=== PATIENT | female | born 1985 | race American Indian/Alaskan Native ===

== ENCOUNTER 2019-02-12 15:04 | Emergency (ER) | payer OTHER ==
[2019-02-12] MEDS ORDERED: BABY ASPIRIN PO ONE (16:01)
--- NOTE | 2019-02-12 16:07 | Emergency Department Report ---
ED Chest Pain HPI - General Chief Complaint: Headache Stated Complaint: CHEST PAIN Time Seen by Provider: 02/12/19 15:35 Source: patient, EMS Mode of arrival: Stretcher Limitations: No Limitations - History of Present Illness Initial Comments: Patient is 34 years old female with history of lupus and previous episode of myocarditis. Patient presented to the ER complaining of left-sided chest pain, tightness in nature with no radiation and associated with some shortness of breath. Patient stated that her pain is completely resolved now. Patient sta ishmael that she has been experiencing episodic palpitation for the last week. Patient denied any fever or chills. No cough, nausea or vomiting. Patient stated that she had mild headache but is resolved now. MD Complaint: chest pain -: This morning Onset: during rest Pain Location: left chest Pain Radiation: none Severity scale (0 -10): 5 Quality: tightness Consistency: intermittent, now resolved Improves With: nothing Worsens With: nothing - Related Data Allergies Allergy/AdvReac Type Severity Reaction Status Date / Time No Known Allergies Allergy Unverified 02/12/19 15:10 Heart Score - HEART Score History: Slightly suspicious EKG: Normal Age: < 45 Risk factors: 1-2 risk factors Troponin: < normal limit HEART Score: 1 ED Review of Systems ROS: Stated complaint: CHEST PAIN Other details as noted in HPI Comment: All other systems reviewed and negative Constitutional: denies: chills, diaphoresis Respiratory: shortness of breath. denies: cough, orthopnea, wheezing Cardiovascular: chest pain, palpitations Gastrointestinal: denies: abdominal pain, nausea, vomiting, diarrhea, constipation, hematemesis, melena, hematochezia Musculoskeletal: denies: back pain Neurological: headache. denies: weakness, numbness, paresthesias, confusion, abnormal gait Psychiatric: denies: depression ED Past Medical Hx - Past Medical History Previous Medical History?: Yes Additional medical history: lupus, anemia - Surgical History Past Surgical History?: Yes Additional Surgical History: umbilical hernia - Social History Smoking Status: Never Smoker Substance Use Type: None ED Physical Exam - General Limitations: No Limitations General appearance: alert, in no apparent distress - Head Head exam: Present: atraumatic, normocephalic, normal inspection - Eye Eye exam: Present: normal appearance, PERRL - ENT ENT exam: Present: normal exam, normal orophraynx, mucous membranes moist - Neck Neck exam: Present: normal inspection, full ROM. Absent: tenderness, meningismus, lymphadenopathy, thyromegaly - Respiratory Respiratory exam: Present: normal lung sounds bilaterally - Cardiovascular Cardiovascular Exam: Present: tachycardia. Absent: systolic murmur, diastolic murmur, rubs, gallop - GI/Abdominal GI/Abdominal exam: Present: soft, normal bowel sounds. Absent: distended, tenderness, guarding, rebound, rigid, organomegaly, mass, bruit, pulsatile mass, hernia - Extremities Exam Extremities exam: Present: normal inspection, full ROM, normal capillary refill. Absent: tenderness, pedal edema, joint swelling, calf tenderness - Back Exam Back exam: Present: normal inspection, full ROM. Absent: CVA tenderness (R), CVA tenderness (L), muscle spasm, paraspinal tenderness, vertebral tenderness - Neurological Exam Neurological exam: Present: alert, oriented X3, CN II-XII intact, normal gait, reflexes normal - Psychiatric Psychiatric exam: Present: normal mood - Skin Skin exam: Present: warm, intact, normal color ED Course Vital Signs 02/12/19 02/12/19 15:06 18:00 Temperature 98.7 F Pulse Rate 109 H 95 H Respiratory 17 18 Rate Blood Pressure 150/109 Blood Pressure 150/109 157/105 [Right] O2 Sat by Pulse 100 96 Oximetry ED Medical Decision Making - Lab Data Result diagrams: 02/12/19 16:06 02/12/19 16:06 - EKG Data -: EKG Interpreted by Nm EKG shows normal: sinus rhythm Rate: normal - EKG Data Interpretation: no acute changes - Radiology Data Radiology results: report reviewed Chest CTA is negative for acute pulmonary embolism. - Medical Decision Making Patient is 34 years old female with history of lupus and previous episode of my ocarditis. Patient presented to the ER complaining of left-sided chest pain, tightness in nature with no radiation and associated with some shortness of breath. Patient stated that her pain is completely resolved now. Patient stated that she has been experiencing episodic palpitation for the last week. Patient denied any fever or chills. No cough, nausea or vomiting. Patient stated that she had mild headache but is resolved now. Patient still chest pain-free. EKG with no ST elevation. Troponin is negative. Chest CTA is negative for pulmonary embolism or any other acute pathology. P atient advised to follow-up with her primary care physician in the next 2-3 days and to return to the ER if symptoms are not improved. Critical care attestation.: If time is entered above; I have spent that time in minutes in the direct care of this critically ill patient, excluding procedure time. ED Disposition Clinical Impression: Chest pain Disposition: TO HOME OR SELFCARE Is pt being admited?: No Condition: Stable Instructions: Chest Pain (ED) Referrals: RYLIE DRIVER MD [Primary Care Provider] - 3-5 Days
[2019-02-12 16:11] LABS: Basophils # (Auto) 0.1 K/mm3 (0.0-0.1); Basophils % (Auto) 0.7 % (0.0-1.8); Eosinophils # (Auto) 0.2 K/mm3 (0.0-0.4); Eosinophils % (Auto) 1.7 % (0.0-4.3); Hematocrit 33.8 % (30.3-42.9); Lymphocytes # (Auto) 1.8 K/mm3 (1.2-5.4); Lymphocytes % (Auto) 19.8 % (13.4-35.0); Mean Corpuscular HGB Conc 33 % (30-34); Mean Corpuscular Volume 78 fl (79-97); Platelet Count 766 K/mm3 (140-440); Red Blood Count 4.32 M/mm3 (3.65-5.03); Red Cell Distribution Width 15.7 % (13.2-15.2)
[2019-02-12 16:25] LABS: BUN/Creatinine Ratio 19; Blood Urea Nitrogen 15 mg/dL (7-17); Calcium 9.3 mg/dL (8.4-10.2); Hemolysis Index 213
[2019-02-12 16:33] LABS: INR 1.08 (0.87-1.13); Partial Thromboplastin Time 28.1 Sec. (24.2-36.6)
--- NOTE | 2019-02-12 17:00 | XRay Report ---
EXAM: XR CHEST ROUTINE 2V HISTORY: Chest Pain TECHNIQUE: PA and lateral chest x-ray dated 02/12/2019 at 1643 hours. COMPARISON: None available. FINDINGS: The heart size and mediastinum are within normal limits. The lung hess and costophrenic angles are clear. There is no acute parenchymal infiltrate, pleural effusion, or pneumothorax seen. The visua lized bony structures are within normal limits. IMPRESSION: 1. No evidence for acute cardiopulmonary disease seen. This document is electronically signed by Karli Morales MD., February 12 2019 04:58:13 PM ET
[2019-02-12 18:15] VITALS: BP 157/105
--- NOTE | 2019-02-12 19:23 | Cat Scan Report ---
PROCEDURE: CT ANGIO CHEST TECHNIQUE: Computerized tomographic angiography of the chest was performed after the IV injection of iodinated nonionic contrast including image processing. The image data was postprocessed using 2-di mensional multiplanar reformatted (MPR) and 3-dimensional (MIP and/or volume rendered) techniques. Au tomated exposure control, adjustment of mA and/or kV according to patient size, or iterative reconstr uction dose optimization techniques were utilized. CT DOSE LENGTH PRODUCT: 484.7 mGycm HISTORY: CHEST PAIN WITH SOB, ELEVATED D-DIMER COMPARISONS: None . FINDINGS: Contrast-enhanced CT angiography of the chest was performed following the intravenous admin istration of iodinated contrast. Sagittal and coronal MIP three-dimensional reformatted images were g enerated. These images demonstrate no CT evidence of pulmonary thromboembolic disease. There is no aortic disse ction. There is no consolidative pulmonary infiltrate. There is no pleural or pericardial effusion. In the upper abdomen, the visualized portion of the liver and spleen are unremarkable. IMPRESSION: No CT evidence of pulmonary thromboembolic disease This document is electronically signed by Nando Dumont MD., February 12 2019 07:21:18 PM ET
[2019-02-12 20:39] LABS: Bacteria,Urine 2+ /HPF (Negative); Bilirubin,Urine NEG (Negative); Blood,Urine NEG (Negative); Color,Urine Yellow (Yellow); Mucus,Urine 3+ /HPF; Protein,Urine <15 mg/dL mg/dL (Negative); Urobilinogen,Urine < 2.0 mg/dL (<2.0)
== END 2019-02-12 20:05 | disposition home or self-care (01) ==
LOC: ED 15:04
DX: R07.89 Other chest pain (principal); R06.02 Shortness of breath
CPT/HCPCS: 36415; 71046; 71275; 80048; 81001; 84484; 84703; 85025; 85379; 85610; 85730; 93005; 93010; 99285; Q9967